=== PATIENT | male | born 1965 | race Caucasian/White ===

== ENCOUNTER 2020-05-11 07:31 | Outpatient (REF) | payer OTHER, SELFPAY | END 2020-05-11 07:32 | disposition home or self-care (01) | LOC: HO.LAB 07:31 | PROVIDERS: Visit Provider Internal Medicine | DX: Z20.822 Contact with and (suspected) exposure to COVID-19 (principal) | CPT/HCPCS: 36415; C9803; U0003; U0005 ==

== ENCOUNTER 2021-09-01 06:04 | Outpatient (REF) | payer OTHER, SELFPAY ==
[2021-09-01 06:22] LABS: MANUAL DIFF FLAG NO
[2021-09-01 07:18] LABS: Basophils Percent Auto 0.7 % (0-2); Eosinophils Absolute Auto 0.1 X10*3/uL (0.0-0.4); Eosinophils Percent Auto 2.4 % (0-4); Hematocrit 43.6 % (42.0-52.0); Hemoglobin 15.4 g/dl (14.0-18.0); Imm Gran Abs Auto 0.01 X10*3/uL (0.00-0.03); Imm Gran Pct Auto 0.3 % (0.0-0.4); Lymphocytes Percent Auto 34.1 % (20-40); Mean Corpuscular HGB Conc 35.3 g/dl (31.0-36.0); Mean Corpuscular Hemoglobin 31.6 pg (27.0-33.0); Mean Corpuscular Volume 89.5 fL (80.0-98.0); Mean Platelet Volume 9.6 fL (9.4-12.4); Monocytes Absolute Auto 0.6 X10*3/uL (0.1-1.2); Monocytes Percent Auto 19.8 % (2-11); Neutrophils Absolute Auto 1.3 x10*3/uL (2.0-8.3); Neutrophils Percent Auto 42.7 % (45-73); Platelet Count 162 X10*3/uL (160-400); Red Blood Count 4.87 X10*6/uL (4.60-5.80); Red Cell Distribution Width 12.3 % (11.0-16.0); White Blood Count 2.9 X10*3/uL (4.8-10.8)
[2021-09-01 07:42] LABS: Alanine Aminotransferase 27 U/L (0-40); Albumin Level 4.1 g/dL (3.5-5.0); Alkaline Phosphatase 81 U/L (39-117); Anion Gap 20 (12-20); Aspartate Amino Transferase 16 U/L (5-37); Bilirubin Total 0.7 mg/dL (0.0-1.0); Blood Urea Nitrogen 11 mg/dL (9-16); Calcium 9.2 mg/dL (8.4-10.2); Carbon Dioxide 22 mmol/L (22-29); Chloride 100 mmol/L (96-108); Cholesterol 124 mg/dL; Estimated Glomerular Filt Rate > 60; Glucose Fasting 299 mg/dL (60-99); HDL Cholesterol 41 mg/dL; LDL Cholesterol Calculated 62 mg/dl; Potassium 5.3 mmol/L (3.3-5.1); Sodium 137 mmol/L (135-145); Total Protein 7.3 g/dL (6.5-8.0); Triglycerides 108 mg/dL
[2021-09-01 07:58] LABS: Hemoglobin A1c % > 14.0 %
[2021-09-01 08:08] LABS: Prostate Specific Antigen 0.62 ng/mL (<0.05-4.0)
[2021-09-01 10:22] LABS: Creatinine Urine 59.56 mg/dL; Microalbumin Urine < 5.0 mg/L
== END 2021-09-01 06:05 | disposition home or self-care (01) ==
LOC: HO.LAB 06:04
PROVIDERS: PCP Internal Medicine; Visit Provider Internal Medicine
DX: Z12.5 Encounter for screening for malignant neoplasm of prostate (principal); E11.9 Type 2 diabetes mellitus without complications
CPT/HCPCS: 36415; 80053; 80061; 82043; 83036; 84153; 85025

== ENCOUNTER 2021-12-18 07:43 | Outpatient (REF) | payer OTHER, SELFPAY ==
[2021-12-18 08:04] LABS: MANUAL DIFF FLAG NO
[2021-12-18 08:15] LABS: Basophils Percent Auto 0.9 % (0-2); Eosinophils Absolute Auto 0.1 X10*3/uL (0.0-0.4); Eosinophils Percent Auto 1.9 % (0-4); Hematocrit 43.8 % (42.0-52.0); Imm Gran Abs Auto 0.01 X10*3/uL (0.00-0.03); Imm Gran Pct Auto 0.2 % (0.0-0.4); Lymphocytes Absolute Auto 1.8 X10*3/uL (1.2-4.9); Lymphocytes Percent Auto 40.6 % (20-40); Mean Corpuscular HGB Conc 36.5 g/dl (31.0-36.0); Mean Corpuscular Hemoglobin 30.5 pg (27.0-33.0); Mean Corpuscular Volume 83.6 fL (80.0-98.0); Mean Platelet Volume 8.9 fL (9.4-12.4); Monocytes Absolute Auto 0.4 X10*3/uL (0.1-1.2); Neutrophils Percent Auto 47.4 % (45-73); Platelet Count 234 X10*3/uL (160-400); Red Blood Count 5.24 X10*6/uL (4.60-5.80); Red Cell Distribution Width 12.2 % (11.0-16.0); White Blood Count 4.3 X10*3/uL (4.8-10.8)
[2021-12-18 08:50] LABS: Alanine Aminotransferase 15 U/L (0-40); Albumin Level 4.2 g/dL (3.5-5.0); Alkaline Phosphatase 52 U/L (39-117); Anion Gap 15 (12-20); Aspartate Amino Transferase 11 U/L (5-37); Bilirubin Total 0.8 mg/dL (0.0-1.0); Blood Urea Nitrogen 10 mg/dL (9-16); C Reactive Protein 0.05 mg/dL (< or = 0.50); Calcium 9.4 mg/dL (8.4-10.2); Carbon Dioxide 26 mmol/L (22-29); Chloride 98 mmol/L (96-108); Estimated Glomerular Filt Rate > 60; Glucose Random 294 mg/dL (60-115); Potassium 4.6 mmol/L (3.3-5.1); Sodium 134 mmol/L (135-145); Total Protein 7.1 g/dL (6.5-8.0)
[2021-12-18 09:12] LABS: Free T4 (Free Thyroxine) 1.46 ng/dL (0.71-1.85); Thyroid Stimulating Hormone 2.15 uIU/mL (0.32-4.0)
[2021-12-18 09:20] LABS: Estimated Average Glucose 272 mg/dL; Hemoglobin A1c % 11.1 %
[2021-12-18 16:27] LABS: Vitamin B12 1898 pg/mL (200-900)
== END 2021-12-18 07:44 | disposition home or self-care (01) ==
LOC: HO.LAB 07:43
PROVIDERS: PCP Internal Medicine; Visit Provider Internal Medicine
DX: E11.9 Type 2 diabetes mellitus without complications (principal); R63.4 Abnormal weight loss; G62.9 Polyneuropathy, unspecified
CPT/HCPCS: 36415; 80053; 82550; 82607; 83036; 84439; 84443; 85025; 86140

== ENCOUNTER 2022-03-18 12:11 | Outpatient (REF) | payer OTHER, SELFPAY ==
[2022-03-18 13:49] LABS: MANUAL DIFF FLAG NO
[2022-03-18 13:54] LABS: Appearance Urine Clear; Color Urine Yellow; Glucose Urine UA 500 mg/dL (Negative); Leukocyte Esterase Urine Negative (Negative); Nitrite Urine Negative (Negative); Urine Blood Negative (Negative); Urine Ketones Negative (Negative); Urine Protein Negative (Neg-Trace)
[2022-03-18 13:54] LABS: Basophils Absolute Auto 0.1 X10*3/uL (0.0-0.2); Basophils Percent Auto 0.7 % (0-2); Eosinophils Absolute Auto 0.1 X10*3/uL (0.0-0.4); Eosinophils Percent Auto 1.6 % (0-4); Hematocrit 43.2 % (42.0-52.0); Hemoglobin 15.5 g/dl (14.0-18.0); Imm Gran Abs Auto 0.02 X10*3/uL (0.00-0.03); Imm Gran Pct Auto 0.3 % (0.0-0.4); Lymphocytes Absolute Auto 2.1 X10*3/uL (1.2-4.9); Lymphocytes Percent Auto 29.6 % (20-40); Mean Corpuscular HGB Conc 35.9 g/dl (31.0-36.0); Mean Corpuscular Hemoglobin 30.9 pg (27.0-33.0); Mean Corpuscular Volume 86.2 fL (80.0-98.0); Mean Platelet Volume 9.2 fL (9.4-12.4); Monocytes Absolute Auto 0.5 X10*3/uL (0.1-1.2); Monocytes Percent Auto 7.1 % (2-11); Neutrophils Absolute Auto 4.2 x10*3/uL (2.0-8.3); Neutrophils Percent Auto 60.7 % (45-73); Platelet Count 262 X10*3/uL (160-400); Red Blood Count 5.01 X10*6/uL (4.60-5.80); Red Cell Distribution Width 12.4 % (11.0-16.0)
[2022-03-18 14:35] LABS: Alanine Aminotransferase 10 U/L (0-40); Albumin Level 4.2 g/dL (3.5-5.0); Alkaline Phosphatase 57 U/L (39-117); Amylase 34 U/L (28-100); Anion Gap 12 (12-20); Aspartate Amino Transferase 10 U/L (5-37); Bilirubin Total 0.4 mg/dL (0.0-1.0); Blood Urea Nitrogen 10 mg/dL (9-16); C Reactive Protein < 0.04 mg/dL (< or = 0.50); Calcium 9.5 mg/dL (8.4-10.2); Carbon Dioxide 28 mmol/L (22-29); Chloride 98 mmol/L (96-108); Estimated Glomerular Filt Rate > 60; Glucose Random 210 mg/dL (60-115); Lipase 28 U/L (8-78); Sodium 133 mmol/L (135-145); Total Protein 6.8 g/dL (6.5-8.0)
[2022-03-18 14:38] LABS: Creatinine Urine 50.63 mg/dL; Microalbumin Urine < 5.0 mg/L
[2022-03-18 15:36] LABS: Estimated Average Glucose 229 mg/dL; Hemoglobin A1c % 9.6 %
== END 2022-03-18 12:12 | disposition home or self-care (01) ==
LOC: HO.10HDL 12:11
PROVIDERS: Visit Provider Internal Medicine
DX: E11.9 Type 2 diabetes mellitus without complications (principal); R10.9 Unspecified abdominal pain
CPT/HCPCS: 36415; 80053; 81003; 82043; 82150; 82550; 83036; 83690; 85025; 86140

== ENCOUNTER 2022-08-26 07:27 | Outpatient (REF) | payer OTHER, SELFPAY ==
[2022-08-26 11:23] LABS: MANUAL DIFF FLAG NO
[2022-08-26 11:55] LABS: Basophils Percent Auto 0.6 % (0-2); Eosinophils Absolute Auto 0.1 X10*3/uL (0.0-0.4); Eosinophils Percent Auto 2.1 % (0-4); Hematocrit 42.9 % (42.0-52.0); Hemoglobin 14.7 g/dl (14.0-18.0); Imm Gran Abs Auto 0.01 X10*3/uL (0.00-0.03); Imm Gran Pct Auto 0.2 % (0.0-0.4); Lymphocytes Absolute Auto 1.8 X10*3/uL (1.2-4.9); Lymphocytes Percent Auto 35.3 % (20-40); Mean Corpuscular HGB Conc 34.3 g/dl (31.0-36.0); Mean Corpuscular Hemoglobin 30.2 pg (27.0-33.0); Mean Corpuscular Volume 88.3 fL (80.0-98.0); Mean Platelet Volume 9.7 fL (9.4-12.4); Monocytes Absolute Auto 0.5 X10*3/uL (0.1-1.2); Monocytes Percent Auto 10.5 % (2-11); Neutrophils Absolute Auto 2.7 x10*3/uL (2.0-8.3); Neutrophils Percent Auto 51.3 % (45-73); Platelet Count 187 X10*3/uL (160-400); Red Blood Count 4.86 X10*6/uL (4.60-5.80); Red Cell Distribution Width 12.9 % (11.0-16.0); White Blood Count 5.2 X10*3/uL (4.8-10.8)
[2022-08-26 12:20] LABS: Alanine Aminotransferase 12 U/L (0-40); Albumin Level 3.9 g/dL (3.5-5.0); Alkaline Phosphatase 62 U/L (39-117); Anion Gap 9 (12-20); Aspartate Amino Transferase 11 U/L (5-37); Bilirubin Total 0.6 mg/dL (0.0-1.0); Blood Urea Nitrogen 13 mg/dL (9-16); Calcium 9.2 mg/dL (8.4-10.2); Carbon Dioxide 29 mmol/L (22-29); Chloride 106 mmol/L (96-108); Cholesterol 129 mg/dL; Estimated Glomerular Filt Rate > 60; Glucose Fasting 151 mg/dL (60-99); HDL Cholesterol 49 mg/dL; LDL Cholesterol Calculated 64 mg/dl; Potassium 5.3 mmol/L (3.3-5.1); Sodium 139 mmol/L (135-145); Total Protein 6.4 g/dL (6.5-8.0); Triglycerides 82 mg/dL
[2022-08-26 12:29] LABS: Estimated Average Glucose 214 mg/dL; Hemoglobin A1c % 9.1 %
[2022-08-26 12:33] LABS: Creatinine Urine 107.73 mg/dL; Microalbum/Creatinine Ratio Ur 9.2 ug/mg cr
[2022-08-26 12:55] LABS: Folate 9.8 ng/mL (> or = 4.0); PSA,Total (Free>4and<10) 0.93 ng/mL (0.00-4.00); Vitamin B12 1798 pg/mL (200-900)
== END 2022-08-26 07:28 | disposition home or self-care (01) ==
LOC: HO.HMGCLDS 07:27
PROVIDERS: PCP Internal Medicine; Visit Provider Internal Medicine
DX: Z12.5 Encounter for screening for malignant neoplasm of prostate (principal); E11.9 Type 2 diabetes mellitus without complications; F10.11 Alcohol abuse, in remission; M79.2 Neuralgia and neuritis, unspecified; Z98.890 Other specified postprocedural states; Z79.4 Long term (current) use of insulin
CPT/HCPCS: 36415; 80053; 80061; 82043; 82607; 82746; 83036; 84153; 85025

== ENCOUNTER 2023-01-18 07:16 | Outpatient (REF) | payer OTHER, SELFPAY ==
[2023-01-18 12:01] LABS: Estimated Average Glucose 203 mg/dL; Hemoglobin A1c % 8.7 % (<6.0)
[2023-01-25 23:53] LABS: Insulin Auto Antibody 1.3 U/mL (<0.4)
== END 2023-01-18 07:17 | disposition home or self-care (01) ==
LOC: HO.HMGCLDS 07:16
PROVIDERS: PCP Internal Medicine; Visit Provider Internal Medicine
DX: E11.9 Type 2 diabetes mellitus without complications (principal); R74.8 Abnormal levels of other serum enzymes
CPT/HCPCS: 36415; 80053; 82607; 82746; 83036; 86337

== ENCOUNTER 2023-06-23 12:17 | Outpatient (AMB) | payer OTHER, SELFPAY ==
[2023-06-23 13:04] VITALS: BP 126/80; PULSE 93; O2SAT 98; BMI 25.4
--- NOTE | 2023-06-23 13:04 | MHC.PC.OV ---
Vital Signs 06/23/23 13:04 Height 6 ft 2 in Weight 198 lb BMI 25.4 BP 126/80 Blood Pressure Location Lt brachial Position Sitting Pulse 93 Pulse Source Pulse Oximeter Pulse Oximetry (%) 98 Oxygen Delivery Method Room Air Intake Visit Reasons: DM F/U Intake Note: Pt is here today for a follow up visit on DM. Allergies metformin Adverse Reaction (Intermediate, Verified 06/23/23 13:04) Stomach Upset Medication List - Last Reconciled 06/23/23 by Fernanda Villarreal MD blood sugar diagnostic (FreeStyle Lite Strips) As directed blood-glucose meter (FreeStyle Lite Meter kit) As directed Farxiga (dapagliflozin propanediol) 5 mg PO DAILY NS flash glucose sensor (FreeStyle Magdalena 14 Day Sensor kit) TID gabapentin 300 mg PO BID insulin glargine (Lantus Solostar U-100 Insulin) 28 units subcut DAILY insulin lispro (Humalog KwikPen (U-100) Insulin) 6 - 12 units subcut lancets (FreeStyle Lancets) As directed pantoprazole 20 mg PO DAILY semaglutide (Ozempic) 0.25 mg (0.368 mL) subcut QWEEK Tobacco use date assessed: 06/23/23 Dental Screening Dental Screen Date: 06/23/23 Did you have a dental visit in the last 12 months?: Yes Did you have a dental problem in the last 6 months where you did not have access to dental care?: No Was dental information given to patient?: Patient has dentist HPI DM F/U HPI Details Patient presents for the follow-up of type 2 diabetes. He started taking Ozempic last month and is up to 0.5 mg weekly and tolerating well. He has been taking insulins, Lantus and Humalog. Patient reports improved fasting blood glucose down to 160s since started Ozempic. 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 1. Little interest or pleasure in doing things: not at all 2. Feeling down, depressed, or hopeless: not at all 3. Trouble falling or staying asleep, or sleeping too much: not at all 4. Feeling tired or having little energy: not at all 5. Poor appetite or overeating: not at all 6. Feeling bad about yourself - or that you are a failure or have let yourself or your family down: not at all 7. Trouble concentrating on things, such as reading the newspaper or watching television: not at all 8. Moving or speaking so slowly that other people could have noticed. Or the opposite - being so fidgety or restless that you have been moving around a lot more than usual: not at all 9. Thoughts that you would be better off or of hurting yourself in some way: not at all Total score: 0 Depression Screening Interpretation: Negative Depression Screening Done: Yes Source: Developed by Drs. Kong Paniagua, Leatha Haji, Osman Campbell and colleagues, with an educational dia from [employer]. Thrive Questionnaire Date Thrive assessed: 06/23/23 I am a: Patient What is your living situation today?: I have a steady place to live Within the past 12 months, did the food you bought not last and you didn't have the money to get more?: Never true Within the past 12 months, did you worry whether your food would run out before you got money to buy more?: Never true Do you have trouble paying for medicines?: No Do you have trouble getting transportation to medical appointments?: No Do you have trouble paying your heating and electricity bill?: No Do you have trouble taking care of your child, family member or friend?: No Do you have trouble with day-to-day activities such as bathing, preparing meals, shopping, managing finances, etc.?: No Are you currently unemployed and looking for a job?: No Are you interested in more education?: No Please select the resources that you would like help with: None THRIVE Score: 0 AUDIT C Alcohol Use Questionnaire (AUDIT-C) 1. How often do you have a drink containing alcohol?: Never 3. How often do you have six or more drinks on one occasion?: Never Total Score: 0 BRISEIDA-7 AMB Questionnaire BRISEIDA-7 Date BRISEIDA - 7 assessed: 06/23/23 Feeling nervous, anxious, or on edge: 0 = Not at all Not being able to stop or control worryin = Not at all Worrying too much about different things: 0 = Not at all Trouble relaxin = Not at all Being so restless that it is hard to sit still: 0 = Not at all Becoming easily annoyed or irritable: 0 = Not at all Feeling afraid as if something awful might happen: 0 = Not at all Total BRISEIDA-7 score (0-4 normal; 5-9 mild; 10-14 moderate; 15-21 severe): 0 Source: Developed by Drs. Kong Paniagua, Leatha Haji, Osman Campbell and colleagues, with an educational dia from [employer]. Review of Systems Const All systems reviewed & are unremarkable except as noted in HPI and below Reports no additional complaints Eyes Reports no additional complaints ENT Reports no additional complaints Card Reports no additional complaints Resp Reports no additional complaints GI Reports no additional complaints Reports no additional complaints Physical exam (Primary Care) Vital Signs: Last Vital Signs Pulse 93 06/23/23 13:04 BP 126/80 06/23/23 13:04 Pulse Ox 98 06/23/23 13:04 Oxygen Delivery Method Room Air 06/23/23 13:04 BMI result Body Mass Index 25.4 Tobacco/Smoking Status: Tobacco use Status Tobacco use date assessed 06/23/23 06/23/23 13:06 Patient Tobacco Use Status Former Tobacco user 06/23/23 13:06 e-Cigarette/Vaping Use Never Used 06/23/23 13:05 PHQ-9: PHQ-9 Score PHQ-9: Total score 0 06/23/23 13:13 Depression Screening Interpretation: Negative Thrive Assessment: Date of Thrive Assessment Date Thrive assessed 06/23/23 06/23/23 13:13 Const General: no acute distress HENMT Head: Yes normal to inspection Ears: hearing grossly normal bilaterally Face and sinus: Yes normal facial exam Eyes General: appearance normal, both eyes and all related structures Resp Effort & Inspection: normal respiratory effort Auscultation: clear to auscultation bilaterally Cardio Rhythm: regular rhythm Heart sounds: S1 normal heart sound present and S2 normal heart sound present GI Inspection: Yes normal to inspection Palpation (GI): Soft to palpation Percussion: Yes normal to percussion Auscultation: normal bowel sounds Assessment and Plan Assessment & Plan (1) DM type 2 (diabetes mellitus, type 2): Comment: x 6 years, f/u with Marcos Bonds Code(s): E11.9 - Type 2 diabetes mellitus without complications Plan: ADA diet increase physical activity discussed with the patient. 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
== END 2023-06-23 13:53 | disposition home or self-care (01) ==
PROVIDERS: PCP Internal Medicine; Visit Provider Internal Medicine
DX: E11.9 Type 2 diabetes mellitus without complications (principal); Z79.4 Long term (current) use of insulin; E78.5 Hyperlipidemia, unspecified
CPT/HCPCS: 99213

== ENCOUNTER 2023-08-23 07:35 | Outpatient (REF) | payer OTHER, SELFPAY ==
[2023-08-23 10:22] LABS: MANUAL DIFF FLAG NO
[2023-08-23 10:29] LABS: Basophils Percent Auto 0.7 % (0-2); Eosinophils Absolute Auto 0.1 X10*3/uL (0.0-0.4); Eosinophils Percent Auto 2.5 % (0-4); Hematocrit 44.1 % (42.0-52.0); Hemoglobin 15.3 g/dl (14.0-18.0); Imm Gran Abs Auto 0.01 X10*3/uL (0.00-0.03); Imm Gran Pct Auto 0.2 % (0.0-0.4); Lymphocytes Absolute Auto 1.3 X10*3/uL (1.2-4.9); Lymphocytes Percent Auto 28.7 % (20-40); Mean Corpuscular HGB Conc 34.7 g/dl (31.0-36.0); Mean Corpuscular Hemoglobin 31.4 pg (27.0-33.0); Mean Corpuscular Volume 90.4 fL (80.0-98.0); Mean Platelet Volume 10.2 fL (9.4-12.4); Monocytes Absolute Auto 0.4 X10*3/uL (0.1-1.2); Monocytes Percent Auto 8.6 % (2-11); Neutrophils Absolute Auto 2.6 x10*3/uL (2.0-8.3); Neutrophils Percent Auto 59.3 % (45-73); Platelet Count 172 X10*3/uL (160-400); Red Blood Count 4.88 X10*6/uL (4.60-5.80); Red Cell Distribution Width 13.1 % (11.0-16.0); White Blood Count 4.4 X10*3/uL (4.8-10.8)
[2023-08-23 10:38] LABS: Estimated Average Glucose 183 mg/dL
[2023-08-23 10:52] LABS: Alanine Aminotransferase 19 U/L (0-40); Albumin Level 3.8 g/dL (3.5-5.0); Alkaline Phosphatase 54 U/L (39-117); Anion Gap 12 (12-20); Aspartate Amino Transferase 17 U/L (5-37); Bilirubin Total 0.5 mg/dL (0.0-1.0); Blood Urea Nitrogen 15 mg/dL (9-16); Calcium 8.6 mg/dL (8.4-10.2); Carbon Dioxide 23 mmol/L (22-29); Chloride 107 mmol/L (96-108); Cholesterol 110 mg/dL (<200); Estimated Glomerular Filt Rate > 60; Glucose Fasting 215 mg/dL (60-99); HDL Cholesterol 39 mg/dL (>40); LDL Cholesterol Calculated 59 mg/dL (<100); Potassium 4.4 mmol/L (3.3-5.1); Sodium 138 mmol/L (135-145); Total Protein 6.7 g/dL (6.5-8.0); Triglycerides 61 mg/dL (<150)
[2023-08-23 11:24] LABS: Creatinine Urine 163.98 mg/dL; Microalbum/Creatinine Ratio Ur 4.2 ug/mg cr (<30)
== END 2023-08-23 07:36 | disposition home or self-care (01) ==
LOC: HO.HMGCLDS 07:35
PROVIDERS: PCP Internal Medicine; Visit Provider Internal Medicine
DX: E11.9 Type 2 diabetes mellitus without complications (principal); Z79.4 Long term (current) use of insulin; E78.5 Hyperlipidemia, unspecified
CPT/HCPCS: 36415; 80053; 80061; 82043; 82570; 83036; 85025

== ENCOUNTER 2023-08-25 10:37 | Outpatient (AMB) | payer OTHER, SELFPAY ==
[2023-08-25 10:41] VITALS: BP 120/80; PULSE 78; O2SAT 97; BMI 25.4
--- NOTE | 2023-08-25 10:41 | MHC.PC.OV ---
Vital Signs 08/25/23 10:41 Height 6 ft 2 in Weight 198 lb BMI 25.4 BP 120/80 Blood Pressure Location Lt brachial Position Sitting Pulse 78 Pulse Source Pulse Oximeter Pulse Oximetry (%) 97 Oxygen Delivery Method Room Air Intake Visit Reasons: DM 1M F/U Intake Note: Pt is here today for 1 month follow up visit on DM. Allergies metformin Adverse Reaction (Intermediate, Verified 08/25/23 10:43) Stomach Upset Medication List - Last Reconciled 08/25/23 by Fernanda Villarreal MD blood sugar diagnostic (FreeStyle Lite Strips) As directed blood-glucose meter (FreeStyle Lite Meter kit) As directed dapagliflozin propanediol (Farxiga) 5 mg PO DAILY flash glucose sensor (FreeStyle Magdalena 14 Day Sensor kit) TID gabapentin 300 mg PO BID insulin glargine (Lantus Solostar U-100 Insulin) 28 units subcut DAILY insulin lispro (Humalog KwikPen (U-100) Insulin) 6 - 12 units subcut lancets (FreeStyle Lancets) As directed pantoprazole 20 mg PO DAILY Tobacco use date assessed: 06/23/23 Dental Screening Dental Screen Date: 06/23/23 HPI DM 1M F/U HPI Details Patient presents for the follow-up of type 2 diabetes. He could not tolerate Ozempic but has been taking Farxiga and insulin. 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 Kong Paniagua, Leatha Haji, Osman Campbell and colleagues, with an educational dia from [employer]. Review of Systems Const All systems reviewed & are unremarkable except as noted in HPI and below ENT Reports no additional complaints Card Reports no additional complaints Resp Reports no additional complaints GI Reports no additional complaints Reports no additional complaints Physical exam (Primary Care) Vital Signs: Last Vital Signs Pulse 78 08/25/23 10:41 BP 120/80 08/25/23 10:41 Pulse Ox 97 08/25/23 10:41 Oxygen Delivery Method Room Air 08/25/23 10:41 BMI result Body Mass Index 25.4 Tobacco/Smoking Status: Tobacco use Status Tobacco use date assessed 06/23/23 08/25/23 10:42 Patient Tobacco Use Status Former Tobacco user 08/25/23 10:42 e-Cigarette/Vaping Use Never Used 08/25/23 10:42 Thrive Assessment: Date of Thrive Assessment Date Thrive assessed 06/23/23 08/25/23 10:42 Const General: no acute distress HENMT Mouth: Normal oral and palatal mucosa present Neck Neck: Yes supple Resp Effort & Inspection: normal respiratory effort Auscultation: clear to auscultation bilaterally Cardio Rhythm: regular rhythm Heart sounds: S1 normal heart sound present and S2 normal heart sound present Assessment and Plan Assessment & Plan (1) DM type 2 (diabetes mellitus, type 2): Comment: x 6 years, f/u with Marcos Bonds Code(s): E11.9 - Type 2 diabetes mellitus without complications Plan: ADA diet regular physical activity eating small frequent meals discussed with the patient. He was advised to increase Lantus to 28 units and take 6 units of Humalog before meals for the glucose between 100 and 150 and 12 units for above 150,m continue [facility] follow-up in 6 weeks Medications: Discontinued gabapentin Discontinued Reason: Doctor's Order 300 mg PO BID 60 caps 4RF Coding Level of Care Code Est Pt Level 3 (44103) Diagnoses DM type 2 (diabetes mellitus, type 2) E11.9
== END 2023-08-25 11:18 | disposition home or self-care (01) ==
PROVIDERS: PCP Internal Medicine; Visit Provider Internal Medicine
DX: E11.9 Type 2 diabetes mellitus without complications (principal)
CPT/HCPCS: 99213

== ENCOUNTER 2024-05-02 07:13 | Outpatient (REF) | payer OTHER, SELFPAY ==
[2024-05-02 10:06] LABS: MANUAL DIFF FLAG NO
[2024-05-02 10:22] LABS: Eosinophils Absolute Auto 0.1 X10*3/uL (0.0-0.4); Eosinophils Percent Auto 2.4 % (0-4); Hematocrit 45.5 % (42.0-52.0); Hemoglobin 15.8 g/dl (14.0-18.0); Imm Gran Abs Auto 0.03 X10*3/uL (0.00-0.03); Imm Gran Pct Auto 0.7 % (0.0-0.4); Lymphocytes Absolute Auto 1.4 X10*3/uL (1.2-4.9); Lymphocytes Percent Auto 33.6 % (20-40); Mean Corpuscular HGB Conc 34.7 g/dl (31.0-36.0); Mean Corpuscular Hemoglobin 32.1 pg (27.0-33.0); Mean Corpuscular Volume 92.5 fL (80.0-98.0); Mean Platelet Volume 9.9 fL (9.4-12.4); Monocytes Absolute Auto 0.5 X10*3/uL (0.1-1.2); Monocytes Percent Auto 10.7 % (2-11); Neutrophils Absolute Auto 2.2 x10*3/uL (2.0-8.3); Neutrophils Percent Auto 51.6 % (45-73); Platelet Count 159 X10*3/uL (160-400); Red Blood Count 4.92 X10*6/uL (4.60-5.80); Red Cell Distribution Width 13.3 % (11.0-16.0); White Blood Count 4.2 X10*3/uL (4.8-10.8)
[2024-05-02 10:34] LABS: Estimated Average Glucose 163 mg/dL; Hemoglobin A1C 229.6893 umol/L; Hemoglobin A1c % 7.3 % (<6.0); Total Hemoglobin (HGBA1C) 4088.7816 umol/L
[2024-05-02 10:47] LABS: Alanine Aminotransferase 20 U/L (0-40); Albumin Level 3.9 g/dL (3.5-5.0); Alkaline Phosphatase 54 U/L (39-117); Anion Gap 8 (12-20); Aspartate Amino Transferase 28 U/L (5-37); Bilirubin Total 0.5 mg/dL (0.0-1.0); Blood Urea Nitrogen 13 mg/dL (9-16); Calcium 8.8 mg/dL (8.4-10.2); Carbon Dioxide 29 mmol/L (22-29); Chloride 108 mmol/L (96-108); Cholesterol 130 mg/dL (<200); Estimated Glomerular Filt Rate > 60; Glucose Fasting 130 mg/dL (60-99); HDL Cholesterol 52 mg/dL (>40); LDL Cholesterol Calculated 59 mg/dL (<100); Potassium 4.6 mmol/L (3.3-5.1); Sodium 140 mmol/L (135-145); Total Protein 7.1 g/dL (6.5-8.0); Triglycerides 98 mg/dL (<150)
[2024-05-02 10:58] LABS: Creatinine Urine 219.09 mg/dL; Microalbum/Creatinine Ratio Ur 3.6 ug/mg cr (<30)
== END 2024-05-02 07:14 | disposition home or self-care (01) ==
LOC: HO.HMGCLDS 07:13
PROVIDERS: PCP Internal Medicine; Visit Provider Internal Medicine
DX: E11.9 Type 2 diabetes mellitus without complications (principal); Z79.4 Long term (current) use of insulin; E78.5 Hyperlipidemia, unspecified
CPT/HCPCS: 36415; 80053; 80061; 82043; 82570; 83036; 85025

== ENCOUNTER 2024-05-10 11:04 | Outpatient (AMB) | payer OTHER, SELFPAY ==
[2024-05-10 11:22] VITALS: BP 120/78; PULSE 77; RESP 18; TEMP 37.2; O2SAT 97; BMI 26.3
--- NOTE | 2024-05-10 11:22 | MHC.PC.OV ---
Vital Signs 05/10/24 11:22 Height 6 ft 2 in Weight 205 lb BMI 26.3 BP 120/78 Blood Pressure Location Lt brachial Position Sitting Respiration 18 Pulse 77 Pulse Source Pulse Oximeter Temp 98.9 F Temp Source Oral Pulse Oximetry (%) 97 Oxygen Delivery Method Room Air Intake Visit Reasons: Followup diabetes Intake Note: Pt is here today for a follow up visit on DM. Allergies metformin Adverse Reaction (Intermediate, Verified 05/10/24 11:24) Stomach Upset Medication List - Last Reconciled 05/10/24 by Fernanda Villarreal MD blood sugar diagnostic (FreeStyle Lite Strips) As directed blood-glucose meter (FreeStyle Lite Meter kit) As directed Farxiga (dapagliflozin propanediol) 10 mg PO DAILY NS FreeStyle Magdalena 3 Sensor (blood-glucose sensor) As directed NS insulin glargine (Lantus Solostar U-100 Insulin) 28 units (0.28 mL) subcut DAILY insulin lispro (Humalog KwikPen (U-100) Insulin) 6 - 12 units (0.06 - 0.12 mL) subcut TID MDD 36 units lancets (FreeStyle Lancets) As directed Tobacco use date assessed: 05/10/24 Dental Screening Dental Screen Date: 05/10/24 Did you have a dental visit in the last 12 months?: Yes Did you have a dental problem in the last 6 months where you did not have access to dental care?: No Was dental information given to patient?: Patient has dentist HPI Followup diabetes HPI Details Patient presents for the follow-up of insulin-dependent diabetes, he reports improved fasting blood glucose between 80 and 120. 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 1. Little interest or pleasure in doing things: not at all 2. Feeling down, depressed, or hopeless: not at all 3. Trouble falling or staying asleep, or sleeping too much: not at all 4. Feeling tired or having little energy: not at all 5. Poor appetite or overeating: not at all 6. Feeling bad about yourself - or that you are a failure or have let yourself or your family down: not at all 7. Trouble concentrating on things, such as reading the newspaper or watching television: not at all 8. Moving or speaking so slowly that other people could have noticed. Or the opposite - being so fidgety or restless that you have been moving around a lot more than usual: not at all 9. Thoughts that you would be better off or of hurting yourself in some way: not at all Total score: 0 Depression Screening Interpretation: Negative Depression Screening Done: Yes 95727 - PHQ-9 Billing: Yes Source: Developed by Drs. Kong Paniagua, Leatha Haji, Osman Campbell and colleagues, with an educational dia from [email or web address]. Thrive Questionnaire Date Thrive assessed: 05/10/24 I am a: Patient What is your living situation today?: I have a steady place to live Within the past 12 months, did the food you bought not last and you didn't have the money to get more?: I choose not to answer this question Within the past 12 months, did you worry whether your food would run out before you got money to buy more?: Sometimes True Do you have trouble paying for medicines?: I choose not to answer this question Do you have trouble getting transportation to medical appointments?: No Do you have trouble paying your heating and electricity bill?: Yes Do you have trouble taking care of your child, family member or friend?: No Do you have trouble with day-to-day activities such as bathing, preparing meals, shopping, managing finances, etc.?: No Are you currently unemployed and looking for a job?: No Are you interested in more education?: Yes Please select the resources that you would like help with: Utilities Currently or been in a relationship where the following occur: No concerns reported THRIVE Score: 2 AUDIT C Alcohol Use Questionnaire (AUDIT-C) 1. How often do you have a drink containing alcohol?: Never 3. How often do you have six or more drinks on one occasion?: Never Total Score: 0 BRISEIDA-7 AMB Questionnaire BRISEIDA-7 Date BRISEIDA - 7 assessed: 05/10/24 Feeling nervous, anxious, or on edge: 0 = Not at all Not being able to stop or control worryin = Not at all Worrying too much about different things: 0 = Not at all Trouble relaxin = Not at all Being so restless that it is hard to sit still: 0 = Not at all Becoming easily annoyed or irritable: 0 = Not at all Feeling afraid as if something awful might happen: 0 = Not at all Total BRISEIDA-7 score (0-4 normal; 5-9 mild; 10-14 moderate; 15-21 severe): 0 Source: Developed by Drs. Kong Paniagua, Leatha Haji, Osman Campbell and colleagues, with an educational dia from [email or web address]. BRISEIDA-7 Assessment Billing BRISEIDA-7 Assessment Tool: BRISEIDA-7 Assessment 45094 Physical exam (Primary Care) Vital Signs: Last Vital Signs Temp 98.9 F 05/10/24 11:22 Pulse 77 05/10/24 11:22 Resp 18 05/10/24 11:22 BP 120/78 05/10/24 11:22 Pulse Ox 97 05/10/24 11:22 Oxygen Delivery Method Room Air 05/10/24 11:22 BMI result Body Mass Index 26.3 Tobacco/Smoking Status: Tobacco use Status Tobacco use date assessed 05/10/24 05/10/24 11:27 Patient Tobacco Use Status Former Tobacco user 05/10/24 11:24 e-Cigarette/Vaping Use Never Used 05/10/24 11:24 PHQ-9: PHQ-9 Score PHQ-9: Total score 0 05/10/24 11:27 Depression Screening Interpretation: Negative Thrive Assessment: Date of Thrive Assessment Date Thrive assessed 05/10/24 05/10/24 11:27 Currently or been in a relationship where the following occur: No concerns reported Const General: no acute distress HENMT Head: Yes normal to inspection Face and sinus: Yes normal facial exam Neck Neck: Yes supple Resp Effort & Inspection: normal respiratory effort Auscultation: clear to auscultation bilaterally Cardio Rhythm: regular rhythm Heart sounds: S1 normal heart sound present and S2 normal heart sound present GI Inspection: Yes normal to inspection Palpation (GI): Soft to palpation Coding Level of Care Code Est Pt Level 4 (23882) Diagnoses Insulin dependent type 2 diabetes mellitus E11.9; Z79.4 Additional Codes BRISEIDA-7 Assessment Billing - BRISEIDA-7 Assessment Tool: BRISEIDA-7 Assessment [id number] ([id number]) PHQ-9 - 95881 - PHQ-9 Billing: Yes ([id number]) Assessment & Plan Assessment & Plan (1) Insulin dependent type 2 diabetes mellitus: Code(s): E11.9 - Type 2 diabetes mellitus without complications; Z79.4 - half-way (current) use of insulin Category: Medical Plan: A1c is down to 7.3, continue current treatment. ADA diet regular exercise increase Farxiga to 10 mg a day. Follow-up in 4 months with a fasting labs before Orders: Orders Comprehensive [place]. 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 Complete Blood Count Auto Diff 4 Months E11.9 - Type 2 diabetes mellitus without complications, Z79.4 - half-way (current) use of insulin Microalbumin, Random (w Creat) 4 Months E11.9 - Type 2 diabetes mellitus without complications, Z79.4 - half-way (current) use of insulin Hemoglobin A1c 4 Months E11.9 - Type 2 diabetes mellitus without complications, Z79.4 - half-way (current) use of insulin Medications: New Farxiga (dapagliflozin propanediol) 10 mg PO DAILY 90 tabs 3RF NS FreeStyle Magdalena 3 Sensor (blood-glucose sensor) As directed 3 ea 4RF NS Discontinued flash glucose sensor (FreeStyle Magdalena 14 Day Sensor kit) Discontinued Reason: Doctor's Order TID 6 ea 3RF E11.9 - Type 2 diabetes mellitus without complications, Z79.4 - half-way (current) use of insulin Farxiga (dapagliflozin propanediol) Discontinued Reason: Doctor's Order 5 mg PO DAILY 90 tabs 0RF NS
== END 2024-05-10 13:01 | disposition home or self-care (01) ==
PROVIDERS: PCP Internal Medicine; Visit Provider Internal Medicine
DX: E11.9 Type 2 diabetes mellitus without complications (principal); Z79.4 Long term (current) use of insulin

== ENCOUNTER → 2024-05-10 11:04 | Outpatient (BNVA) | payer OTHER, SELFPAY | PROVIDERS: PCP Internal Medicine; Visit Provider Internal Medicine | DX: E11.9 Type 2 diabetes mellitus without complications (principal); Z79.4 Long term (current) use of insulin | CPT/HCPCS: 96127 ==

== ENCOUNTER 2024-12-14 07:31 | Outpatient (REF) | payer OTHER, SELFPAY ==
--- OUTSIDE RECORDS SUMMARY | 2024-12-14 07:33 | XMS_ITS | Patient Health Record ---
Author Organization [facility] Address [address] [place] [id number] Care Team Providers Care Manufacturing Maintenance Technician Name Role Phone Anil (RETIRED) Oscar STATON Primary Care Provide r Unavailable Morgan Adhikari Jr Unavailable Reason For Referral No Information Medications Medication SIG (Take, Route, Frequency, Duration) Notes Start Date End Date Status Aspirin 81 81 MG 1 tablet Orally Once a day for 30 day(s) Active glipiZIDE 10 MG TAKE ONE TABLET BY M OUTH TWICE A DAY Oral for 30 Active MiraLax (colon prep) 8.3 ounce ((238) grams mixed with Gatorade or Crystal Light orally begin at 5:00 p.m. the day before the procedure for 1 day 09/05/2019 Active metFORMIN HCl 1000 MG TAKE ONE TABLET BY MOUTH TWICE A DAY Oral for 30 Active Immunizations Vaccine Route Administration Date Status Comme nts Influenza Unknown 09/05/2019 Refused Social History Tobacco Use: Social History Observation Description Date Details (start date - stop date) Former Smoker NA - NA Tobacco Use/Smoking Question Answer Notes Patient is a former smoker When did you stop smoking? 26 years ago How long has it been since you last smoked? > 10 years Alcohol Screen Question Answer Notes Did you have a drink containing alcohol in the p ast year? No Points 0 Interpretation Negative Section Notes: no alcohol for 3 years Problems Problem Type SNOMED Code ICD Code Onset Dates Problem Status W/U Status Risk Notes Problem 395383635 Colon cancer screening (Z12.11) Active confirmed Problem 559367765 Encounter for other preprocedural examination (Z01.818) Active confirmed Problem [id number] Long-term use of aspirin therapy (Z79.82) Active confirmed Plan Of Treatment Future Test Test Name Order Date COLONOSCOPY 09/05/2019 Insurance Providers Payer Name Payer Address Payer Phone Subscriber Number Group Number Insured Name Patient Relationship to Insured Coverage Start Date Coverage End Date [facility] [address] [place] [phone] [id number] FREDERIC CLIFFORD Self - patient is the insured Medical (General) History Medical History History ICD Code type II diabetes 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
--- OUTSIDE RECORDS SUMMARY | 2024-12-14 07:33 | XMS_ITS | Continuity of Care Document ---
Author Organization [facility] [address] [place] [address] Phone [phone] Care Team Providers Care Director Of Strategic Alliances Name Role Phone Oscar Ma M.D. Care Team Information Receiv er [phone] Problems Active Problems Provider Date Type 2 diabetes mellitus Eric Anderson M.D. O nset: 04/21/2022 Neuropathy Eric Anderson M.D. Onset: 03/2023 Essential hypertension Eric Anderson M.D. Ons et: 04/21/2022 Social History Type Date Description Comments Sex Male Sex Unknown Tobacco Use Start: Unknown Never Smoked Cigarettes ETOH Use Denies alcohol use Allergies and adverse reactions Description No Known Drug Allergies Medications Active Medications SIG Qnty Indications Order ing Provider Date Mhzwgwmowf626pm Capsules 1 by mouth hs 90caps Eric Anderson M.D. 05/31/2022 Gtptich298Bisu/ML Solution before meals 30ml Eric Anderson M.D. 04/21/2022 Humalog Itrsbxp649Jyjh/ML Solution Pen-Inject inject 6-12 units subcutaneously before meals 15ml E11.9 Eric Anderson M.D. 04/21/[address] Take 1 Tablet By Mouth Once A Day Oscar Ma M.D. Lantus Gnsldhxt154Mwip/ML Solution Pen-Inject Inject 20 Units Subcutaneously Once A Day Oscar Ma M.D. Freestyle LancetsMisc Use To Test Once A Day Unknown Freestyle Lite TestStrips Use To Test Once A Day Unknown Vital Signs Date Vital Result Comment 05/31/2022 2:59pm BP Systolic 120 mmHg BP Diastolic 78 mmHg Heart Rate 92 /min Height 74 inches 6'2 Weight 174.38 lb BMI (Body Mass Index) 22.4 kg/m2 Results Test Acquired Date Facility Test Result H/L Range N ote Glucose Fingerstick 05/31/2022 Inhouse Glucose Fingerstick 173 Glucose Fingerstick 04/21/2022 Inhouse Glucose Fingerstick 285 Medical Devices Description No Information Available Encounters Type Date Location Provider Dx Diagnosis Office Visit 05/31/2022 3:15p Main Office Eric Anderson M.D. E11.9 Type 2 diabetes mellitus without complications I10 Essential (primary) hypertension G62.9 Polyneuropathy, unsp ecified Assessments Date Code Description Provider 05/31/2022 E11.9 Type 2 diabetes mellitus wit hout complications Eric Anderson M.D. 05/31/2022 I10 Essential hypertension Eric Anderson M.D. 05/31/2022 G62.9 Neuropathy Eric Anderson M.D. Plan of Treatment 04/21/2022 - Eric Anderson M.D.* E11.9 Type 2 diabetes mellitus without complications * I10 Essential hypertension * G62.9 Neuropathy* New Medication:* Humalog Kwikpen 100 Unit/ML Functional Status Description No Information Available Mental Status Description No Information Available Referrals Description No Information Available
[2024-12-14 11:11] LABS: MANUAL DIFF FLAG NO
[2024-12-14 11:27] LABS: Hematocrit 44.4 % (42.0-52.0); Hemoglobin 15.5 g/dl (14.0-18.0); Imm Gran Abs Auto 0.01 X10*3/uL (0.00-0.03); Imm Gran Pct Auto 0.2 % (0.0-0.4); Lymphocytes Absolute Auto 1.2 X10*3/uL (1.2-4.9); Mean Corpuscular HGB Conc 34.9 g/dl (31.0-36.0); Mean Corpuscular Hemoglobin 33.5 pg (27.0-33.0); Mean Corpuscular Volume 96.1 fL (80.0-98.0); NRBC Abs Auto 0.000 X10*3/uL (0.0-0.012); NRBC Pct Auto 0.0 /100WBC (0.0-0.2); Platelet Count 121 X10*3/uL (160-400); Red Blood Count 4.62 X10*6/uL (4.60-5.80); White Blood Count 4.0 X10*3/uL (4.8-10.8)
[2024-12-14 11:32] LABS: Hemoglobin A1C 188.0814 umol/L; Total Hemoglobin (HGBA1C) 4069.2924 umol/L
[2024-12-14 11:38] LABS: Alanine Aminotransferase 33 U/L (0-40); Albumin Level 4.2 g/dL (3.5-5.0); Alkaline Phosphatase 37 U/L (39-117); Anion Gap 14 (12-20); Aspartate Amino Transferase 57 U/L (5-37); Blood Urea Nitrogen 12 mg/dL (9-16); Calcium 8.9 mg/dL (8.4-10.2); Carbon Dioxide 28 mmol/L (22-29); Chloride 100 mmol/L (96-108); Estimated Glomerular Filt Rate > 60; Potassium 4.6 mmol/L (3.3-5.1); Sodium 137 mmol/L (135-145); Total Protein 7.0 g/dL (6.5-8.0)
[2024-12-14 14:12] LABS: Microalbum/Creatinine Ratio Ur 14.3 ug/mg cr (<30)
== END 2024-12-14 07:32 | disposition home or self-care (01) ==
LOC: HO.HMGCLDS 07:31
PROVIDERS: PCP Internal Medicine; Visit Provider Internal Medicine
DX: E11.9 Type 2 diabetes mellitus without complications (principal); Z79.4 Long term (current) use of insulin
CPT/HCPCS: 36415; 80053; 82043; 82570; 83036; 85025

== ENCOUNTER 2024-12-16 09:44 | Outpatient (AMB) | payer OTHER, SELFPAY ==
[2024-12-16 10:17] VITALS: BP 124/78; PULSE 80; RESP 18; TEMP 37.1; O2SAT 98; BMI 24.9
--- NOTE | 2024-12-16 10:17 | MHC.PC.OV ---
Vital Signs 12/16/24 10:17 Height 6 ft 2 in Weight 194 lb BMI 24.9 BP 124/78 Blood Pressure Location Rt brachial Position Sitting Respiration 18 Pulse 80 Pulse Source Pulse Oximeter Temp 98.8 F Temp Source Oral Pulse Oximetry (%) 98 Oxygen Delivery Method Room Air Intake Visit Reasons: Annual PE/Med review Intake Note: Pt is here today for PE. Allergies metformin Adverse Reaction (Intermediate, Verified 12/16/24 10:17) Stomach Upset Medication List - Last Reconciled 12/16/24 by Fernanda Villarreal MD blood sugar diagnostic (FreeStyle Lite Strips) As directed blood-glucose meter (FreeStyle Lite Meter kit) As directed blood-glucose sensor (FreeStyle Magdalena 3 Plus Sensor device) Test blood sugar 4 times a day, change sensor every 15 days Farxiga (dapagliflozin propanediol) 10 mg PO DAILY NS insulin glargine (Lantus Solostar U-100 Insulin) 28 units (0.28 mL) subcut DAILY insulin lispro (Humalog KwikPen (U-100) Insulin) 6 - 12 units (0.06 - 0.12 mL) subcut TID MDD 36 units lancets (FreeStyle Lancets) As directed Tobacco use date assessed: 12/16/24 Dental Screening Dental Screen Date: 05/10/24 HPI Annual PE/Med review HPI Details Patient presents for physical. Insulin-dependent diabetes has been well controlled. Patient reports occasionally low blood glucose reading in early mornings hours. He usually does not have a snack after dinner. 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 Housing: House Patient Tobacco Use Status: Former Tobacco user e-Cigarette/Vaping Use: Never Used service: No Current occupational status: employed Cognitive needs: No Hearing needs: No Vision needs: No Questionnaire Thrive Questionnaire Date Thrive assessed: 05/06/24 I am a: Patient What is your living situation today?: I have a steady place to live Within the past 12 months, did the food you bought not last and you didn't have the money to get more?: I choose not to answer this question Within the past 12 months, did you worry whether your food would run out before you got money to buy more?: Sometimes True Do you have trouble paying for medicines?: I choose not to answer this question Do you have trouble getting transportation to medical appointments?: No Do you have trouble paying your heating and electricity bill?: Yes Do you have trouble taking care of your child, family member or friend?: No Do you have trouble with day-to-day activities such as bathing, preparing meals, shopping, managing finances, etc.?: No Are you currently unemployed and looking for a job?: No Are you interested in more education?: Yes Please select the resources that you would like help with: Utilities Currently or been in a relationship where the following occur: No concerns reported THRIVE Score: 2 BRISEIDA-7 AMB Questionnaire BRISEIDA-7 Date BRISEIDA - 7 assessed: 05/10/24 Source: Developed by Drs. Kong Paniagua, Leatha Haji, Osman Campbell and colleagues, with an educational dia from [facility]. Review of Systems Const All systems reviewed & are unremarkable except as noted in HPI and below Eyes Reports no additional complaints ENT Reports no additional complaints Card Reports no additional complaints Resp Reports no additional complaints GI Reports no additional complaints Reports no additional complaints Physical exam (Primary Care) Vital Signs: Last Vital Signs Temp 98.8 F 12/16/24 10:17 Pulse 80 12/16/24 10:17 Resp 18 12/16/24 10:17 BP 124/78 12/16/24 10:17 Pulse Ox 98 12/16/24 10:17 Oxygen Delivery Method Room Air 12/16/24 10:17 BMI result Body Mass Index 24.9 Tobacco/Smoking Status: Tobacco use Status Tobacco use date assessed 12/16/24 12/16/24 10:19 Patient Tobacco Use Status Former Tobacco user 09/08/25 10:19 e-Cigarette/Vaping Use Never Used 12/16/24 10:19 Thrive Assessment: Date of Thrive Assessment Date Thrive assessed 05/06/24 12/16/24 10:19 Currently or been in a relationship where the following occur: No concerns reported Const General: no acute distress HENMT Head: Yes normal to inspection Face and sinus: Yes normal facial exam Eyes General: appearance normal, both eyes and all related structures Neck Neck: Yes supple Resp Effort & Inspection: normal respiratory effort Auscultation: clear to auscultation bilaterally Cardio Rhythm: regular rhythm Heart sounds: S1 normal heart sound present and S2 normal heart sound present GI Inspection: Yes normal to inspection Palpation (GI): Soft to palpation Percussion: Yes normal to percussion Auscultation: normal bowel sounds Extrem Other: Diabetic foot exam skin is intact monofilament and vibration sensation intact bilaterally Coding Level of Care Code Est Pt Prev Care 40-64y(23504) Diagnoses DM type 2 (diabetes mellitus, type 2) E11.9 Hx of colonoscopy Z98.890 Annual physical exam Z00. Assessment & Plan Assessment & Plan (1) DM type 2 (diabetes mellitus, type 2): Comment: IDDM x 6 years, Code(s): E11.9 - Type 2 diabetes mellitus without complications Category: Medical Plan: A1c is 6.4, ADA diet regular exercise discussed with the patient. He will decrease Lantus to 20 units to avoid morning hypoglycemia. Patient will continue Humalog before meals and Magdalena sensor monitoring. Follow-up in 3 months. Patient will be referred to pin attacher for diabetic foot exam. He is up-to-date with diabetic eye exam. Patient's insurance will not cover Farxiga that he has been taking for renal protection (2) Hx of colonoscopy: Comment: 2020, 2 polyps by Code(s): Z98.890 - Other specified postprocedural states Category: Surgical Plan: Patient is due for repeat colonoscopy next year we will obtain a copy of colonoscopy report (3) Annual physical exam: Code(s): Z00.00 - Encounter for general adult medical examination without abnormal findings Category: Medical Plan: Well-balanced diet regular physical activity discussed with the patient Orders: Orders Hemoglobin A1c 3 Months E11.9 - Type 2 diabetes mellitus without complications Lipid Panel 3 Months E11.9 - Type 2 diabetes mellitus without complications Microalbumin, Random (w Creat) 3 Months E11.9 - Type 2 diabetes mellitus without complications Comprehensive [place]. Panel Fast 3 Months E11.9 - Type 2 diabetes mellitus without complications Complete Blood Count Auto Diff 3 Months E11.9 - Type 2 diabetes mellitus without complications Referrals Podiatry Referral E11.9 - Type 2 diabetes mellitus without complications Medications: Changed From insulin glargine (Lantus Solostar U-100 Insulin) 28 units (0.28 mL) subcut DAILY 15 mL 3RF To insulin glargine (Lantus Solostar U-100 Insulin) 20 units (0.2 mL) subcut DAILY 15 mL 3RF
--- OUTSIDE RECORDS SUMMARY | 2024-12-16 11:15 | XMS_ITS | Continuity of Care Document ---
Author Organization [facility] [address] [place] [address] Phone [phone] Care Team Providers Care Ui Ux Developer Name Role Phone Oscar Ma M.D. Care Team Information Receiv er [phone] Problems Active Problems Provider Date Type 2 [...] SIG Qnty Indications Order ing Provider Date Bnwzvigbva886li Capsules 1 by mouth hs 90caps Eric Anderson M.D. 05/31/2022 Hntpmwx784Pxzl/ML Solution before meals 30ml Eric Anderson M.D. 04/21/2022 Humalog Xarwtui498Yhir/ML Solution Pen-Inject inject 6-12 units subcutaneously before meals 15ml E11.9 Eric Anderson M.D. 04/21/[address] Take 1 Tablet By Mouth Once A Day Oscar Ma M.D. Lantus Ewcxstkm944Uuvr/ML Solution Pen-Inject Inject 20 Units Subcutaneously Once [...] Diagnosis Office Visit 05/31/2022 3:15p Main Office Eirc Anderson M.D. E11.9 Type 2 diabetes mellitus [...]
--- OUTSIDE RECORDS SUMMARY | 2024-12-16 11:15 | XMS_ITS | Patient Health Record ---
Author Organization [facility] Address [address] [place] [address] Care Team Providers Care Yoker Name Role Phone Anil (RETIRED) Oscar STATON [...] Problem Status W/U Status Risk Notes Problem [id number] Colon cancer screening (Z12.11) Active confirmed Problem 516962094 Encounter for other preprocedural examination (Z01.818) Active confirmed Problem 514297910 Long-term use of aspirin therapy (Z79.82) Active confirmed Plan Of Treatment Future Test Test Name Order Date COLONOSCOPY 09/05/2019 Insurance Providers Payer Name Payer Address Payer Phone Subscriber Number Group Number Insured Name Patient Relationship to Insured Coverage Start Date Coverage End Date [facility] [address] [facility] [place] [phone] [id number] FREDERIC CLIFFORD Self - patient is the insured Medical (General) History Medical History History ICD Code type II diabetes 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
== END 2024-12-16 11:36 | disposition home or self-care (01) ==
LOC: HO.HMCC 09:45
PROVIDERS: PCP Internal Medicine; Visit Provider Internal Medicine
DX: E11.9 Type 2 diabetes mellitus without complications (principal); Z98.890 Other specified postprocedural states; Z00.00 Encounter for general adult medical examination without abnormal findings

== ENCOUNTER 2024-12-26 07:54 | Outpatient (AMB) | payer OTHER, SELFPAY ==
--- NOTE | 2024-12-26 07:57 | A.OFFVIS_ITS ---
Vital Signs 3 12/26/24 07:59 Height 6 ft 2 in Weight 200 lb BMI 25.7 Intake Visit Reasons: New Pt- Diabetic foot exam Intake Note: Madi is a 59 year old male who presents today as a new patient for a Diabetic foot exam. Last A1c was done on 12/15/23 by his PCP office and the result was 6.4%. He mentions his glucose now is at 212 after breakfast. Patient reports feeling no tingling or numbness in his feet. He mentions he bilaterally [place] the [place] the [place] and it has healed but he has a small dark spot on the bottom of his right foot. Allergies metformin Adverse Reaction (Intermediate, Verified 12/26/24 07:59) Stomach Upset Medication List - Last Reconciled 12/26/24 by Akua Sanchez DPM blood sugar diagnostic (FreeStyle Lite Strips) As directed blood-glucose meter (FreeStyle Lite Meter kit) As directed blood-glucose sensor (FreeStyle Magdalena 3 Plus Sensor device) Test blood sugar 4 times a day, change sensor every 15 days Farxiga (dapagliflozin propanediol) 10 mg PO DAILY NS insulin glargine (Lantus Solostar U-100 Insulin) 20 units (0.2 mL) subcut DAILY insulin lispro (Humalog KwikPen (U-100) Insulin) 6 - 12 units (0.06 - 0.12 mL) subcut TID MDD 36 units lancets (FreeStyle Lancets) As directed HPI Comments Details: The patient is a 59-year-old male with a PMH as seen below presenting for a routine diabetic foot examination and management. The patient reports no current concerns with his feet, denying pain, numbness, tingling, or burning, except when he burned his right foot on the beach, resulting in 2 hyperkeratotic lesions to the plantar aspect of the foot in the area of the 4th and 5th metatarsal heads. The patient has a history of diabetes mellitus, with a recent blood sugar reading of 212 mg/dL and his most recent A1c is 6.4. He is currently on insulin therapy. The patient uses supportive footwear, specifically Hoka sneakers, and has insoles for his boots used in winter. He denies any other pedal concerns. Denies any current nausea, vomiting, fever, or chills. 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 - Endocrine: Reports blood sugar level of 212 mg/dL. - Dermatological: 2 hyperkeratotic lesions noted to the plantar aspect of the right foot. All systems reviewed & are unremarkable except as noted in HPI and below Physical Exam Vital Signs: BMI result Body Mass Index 25.7 Extrem Other: Bilateral lower extremity focused physical exam: Dermatological: Presence of 2 hyperkeratotic lesions noted to the plantar aspect of the right foot in the area of the 4th and 5th metatarsal heads. Upon debridement a preulcerative site was noted with no drainage or purulence. No erythema or edema noted. Nails: Appeared healthy and were of a normal length. Vascular: DP/PT pulses palpable. Capillary refill time less than 3 seconds. Temperature gradient is warm to warm. Pedal hair present. No varicosities noted. Neurological: Sensation intact in feet, able to feel light touch and monofilament testing Musculoskeletal: No pain on palpation to the hyperkeratotic lesions noted to the plantar aspect of the right foot. Range of motion of the forefoot hindfoot and ankle within normal limits. MMT 5/5 bilaterally. Normal arch noted to the bilateral feet. Nonantalgic gait unassisted. Ankle/foot/toe images: 2 1. Office Procedures AMB Debridement/Avulsion Podia Details: Debrided 2 hyperkeratotic lesions noted to the plantar aspect of the right foot using a 15. Blade with no incidents. 91461-Tcgnhpsneno of Callus (2-4) Procedure code (CPT) selection complete Diabetic Foot Exam G9226 - Diabetic Foot Exam Results Reviewed Results Reviewed: Laboratory Tests 12/14/24 07:39 Hemoglobin A1c % 6.4 H Patient's blood glucose today was 212 mg/dL. Assessment & Plan Assessment & Plan (1) DM type 2 (diabetes mellitus, type 2): Comment: IDDM x 6 years, Code(s): E11.9 - Type 2 diabetes mellitus without complications Category: Medical (2) Insulin dependent type 2 diabetes mellitus: Code(s): E11.9 - Type 2 diabetes mellitus without complications; Z79.4 - longterm (current) use of insulin Category: Medical (3) Other specified epidermal thickening: Code(s): L85.8 - Other specified epidermal thickening Category: Medical (4) Acquired keratosis [keratoderma] palmaris et plantaris: Code(s): L85.1 - Acquired keratosis [keratoderma] palmaris et plantaris Category: Medical Plan Patient was informed and verbally consented to the use of an ambient scribe for clinic note documentation during this visit. Provided patient with diabetic foot education. I discussed with the patient the importance of monitoring blood glucose levels and maintaining proper foot care due to diabetes. We reviewed the need for annual foot examinations to prevent complications such as neuropathy or ulcerations. Upon debridement of the hyperkeratotic lesions a preulcerative area was noted, advised patient to apply Neosporin and a Band-Aid to the area for the next 2 weeks to prevent worsening of the site. We also discussed the use of supportive footwear and insoles to aid in foot health. The patient is aware of the importance of monitoring sensation in his feet due to the risk of neuropathy associated with diabetes. 1. Diabetes Mellitus - Continue insulin therapy as prescribed. - Monitor blood glucose levels regularly. - Annual foot examination to monitor for neuropathy and other complications. 2. IPK - debrided hyperkeratotic lesions to prevent underlying wound formation. - Apply Neosporin and a Band-Aid to deeper preulcerative site daily for a couple of weeks. Patient is to return to the office in 1 year. Advised patient to return to the office sooner or to go to the ED if symptoms worsen. We will consider new prescription for diabetic shoes and insoles at next appointment. Orders: Orders 2 AMB Debridement/Avulsion Podiatry Today E11.9 - Type 2 diabetes mellitus without complications, L85.1 - Acquired keratosis [keratoderma] palmaris et plantaris, L85.8 - Other specified epidermal thickening, Z79.4 - longterm (current) use of insulin Coding Level of Care Code New Pt Level 4 (57471) Diagnoses DM type 2 (diabetes mellitus, type 2) E11.9 Insulin dependent type 2 diabetes mellitus E11.9; Z79.4 Other specified epidermal thickening L85.8 Acquired keratosis [keratoderma] palmaris et plantaris L85.1 CPT Codes Skin Debridement - CPT: 65756-Lekfrgbphqj of Callus (2-4) ([id number]) Diabetic Foot Exam - CPT: G9226 - Diabetic Foot Exam ([id number]) Time Spent (min) 49
--- OUTSIDE RECORDS SUMMARY | 2024-12-26 07:58 | XMS_ITS | Patient Health Record ---
Author Organization [facility] Address [address] [place] [address] Care Team Providers Care Tank Washer Name Role Phone Anil (RETIRED) Oscar STATON [...] Problem Status W/U Status Risk Notes Problem 212303466 Colon cancer screening (Z12.11) Active confirmed Problem 958246113 Encounter for other preprocedural examination (Z01.818) Active confirmed Problem 560082051 Long-term use of aspirin therapy (Z79.82) Active confirmed Plan Of Treatment Future Test Test Name Order Date COLONOSCOPY 09/05/2019 Insurance Providers Payer Name Payer Address Payer Phone Subscriber Number Group Number Insured Name Patient Relationship to Insured Coverage Start Date Coverage End Date [facility] [address] [place] [phone] [id number] FREDERIC CLIFFORD Self - patient is the insured Medical (General) History Medical History History ICD Code type II diabetes 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
--- OUTSIDE RECORDS SUMMARY | 2024-12-26 07:58 | XMS_ITS | Continuity of Care Document ---
Author Organization [facility] [address] [place] [address] Phone [phone] Care Team Providers Care Rn Procedures Name Role Phone Oscar Ma M.D. Care Team Information Receiv er [phone] Problems Active Problems Provider Date Type 2 [...] SIG Qnty Indications Order ing Provider Date Gckmfzdsst520gk Capsules 1 by mouth hs 90caps Eric Anderson M.D. 05/31/2022 Knknipx667Ynfz/ML Solution before meals 30ml Eric Anderson M.D. 04/21/2022 Humalog Bjlkzra128Ojiv/ML Solution Pen-Inject inject 6-12 units subcutaneously before meals 15ml E11.9 Eric Anderson M.D. 04/21/[address] Take 1 Tablet By Mouth Once A Day Oscar Ma M.D. Lantus Gwdfnfgo698Qtyh/ML Solution Pen-Inject Inject 20 Units Subcutaneously Once [...]
[2024-12-26 07:59] VITALS: BMI 25.7
== END 2024-12-26 08:18 | disposition home or self-care (01) ==
LOC: HO.HPODS 07:55
PROVIDERS: PCP Internal Medicine; Visit Provider Student in an Organized Health Care Education/Training Program
DX: E11.9 Type 2 diabetes mellitus without complications (principal); Z79.4 Long term (current) use of insulin; L85.8 Other specified epidermal thickening; L85.1 Acquired keratosis [keratoderma] palmaris et plantaris
CPT/HCPCS: 11056; 99203; G9226

== ENCOUNTER → 2024-12-26 07:54 | Outpatient (BNVA) | payer OTHER, SELFPAY | PROVIDERS: PCP Internal Medicine; Visit Provider Student in an Organized Health Care Education/Training Program | DX: L85.1 Acquired keratosis [keratoderma] palmaris et plantaris (principal); L85.8 Other specified epidermal thickening; E11.9 Type 2 diabetes mellitus without complications; Z79.4 Long term (current) use of insulin | CPT/HCPCS: 11056 ==

== ENCOUNTER 2025-02-20 06:55 | Outpatient (REF) | payer OTHER, SELFPAY ==
--- OUTSIDE RECORDS SUMMARY | 2025-02-20 06:59 | XMS_ITS | Patient Health Record ---
Author Organization [facility] Address [address] [place] [phone] Care Team Providers Care Ui Architect Name Role Phone Anil (RETIRED) Oscar STATON Primary Care Provide r Unavailable Morgan Adhikari Jr Unavailable Reason For Referral No Information Medications Medication SIG (Take, Route, Frequency, Duration) Notes Start Date End Date Status Aspirin 81 81 MG 1 tablet Orally Once a day; Duration: 30 day(s) Active glipiZIDE 10 MG TAKE ONE TABLET BY M OUTH TWICE A DAY Oral; Duration: 30 Active MiraLax (colon prep) 8.3 ounce ((238) grams mixed with Gatorade or Crystal Light orally begin at 5:00 p.m. the day before the procedure; Duration: 1 day 09/05/2019 Active metFORMIN HCl 1000 MG TAKE ONE TABLET BY MOUTH TWICE A DAY Oral; Duration: 30 Active Immunizations Vaccine Route Administration Date [...] Problem Status W/U Status Risk Notes Problem Colon cancer screening (535620694) Colon cancer screening (Z12.11) Active confirmed Problem Pre-procedure evaluation check (996069026) Encounter for other preprocedural examination (Z01.818) Active confirmed Problem Long-term current use of antiplatelet drug ([id number] ) Long-term use of aspirin therapy (Z79.82) Active confirmed Plan Of Treatment Future Test Test Name Order Date COLONOSCOPY 09/05/2019 Insurance Providers Payer Name Payer Address Payer Phone Subscriber Number Group Number Insured Name Patient Relationship to Insured Coverage Start Date Coverage End Date [facility] [address] [place] [phone] [id number] FREDERIC CLIFFORD Self - patient is the insured Medical (General) History Medical History History ICD Code type II diabetes 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
[2025-02-20 10:31] LABS: MANUAL DIFF FLAG NO
[2025-02-20 10:46] LABS: Hematocrit 43.9 % (42.0-52.0); Hemoglobin 15.4 g/dl (14.0-18.0); Imm Gran Abs Auto 0.01 X10*3/uL (0.00-0.03); Imm Gran Pct Auto 0.2 % (0.0-0.4); Lymphocytes Absolute Auto 1.3 X10*3/uL (1.2-4.9); Mean Corpuscular HGB Conc 35.1 g/dl (31.0-36.0); Mean Corpuscular Hemoglobin 33.1 pg (27.0-33.0); Mean Corpuscular Volume 94.4 fL (80.0-98.0); NRBC Abs Auto 0.000 X10*3/uL (0.0-0.012); NRBC Pct Auto 0.0 /100WBC (0.0-0.2); Platelet Count 151 X10*3/uL (160-400); Red Blood Count 4.65 X10*6/uL (4.60-5.80); White Blood Count 4.6 X10*3/uL (4.8-10.8)
[2025-02-20 11:25] LABS: Microalbum/Creatinine Ratio Ur 15.0 ug/mg cr (<30)
[2025-02-20 11:59] LABS: Alanine Aminotransferase 16 U/L (0-40); Albumin Level 4.1 g/dL (3.5-5.0); Alkaline Phosphatase 48 U/L (39-117); Anion Gap 11 (12-20); Aspartate Amino Transferase 26 U/L (5-37); Blood Urea Nitrogen 18 mg/dL (9-16); Calcium 8.9 mg/dL (8.4-10.2); Carbon Dioxide 26 mmol/L (22-29); Chloride 103 mmol/L (96-108); Cholesterol 152 mg/dL (<200); Estimated Glomerular Filt Rate > 60; HDL Cholesterol 61 mg/dL (>40); Potassium 4.5 mmol/L (3.3-5.1); Sodium 135 mmol/L (135-145); Total Protein 6.8 g/dL (6.5-8.0); Triglycerides 107 mg/dL (<150)
== END 2025-02-20 06:56 | disposition home or self-care (01) ==
LOC: HO.HMGCLDS 06:55
PROVIDERS: PCP Internal Medicine; Visit Provider Internal Medicine
DX: E11.9 Type 2 diabetes mellitus without complications (principal)
CPT/HCPCS: 36415; 80053; 80061; 82043; 82570; 83036; 85025

== ENCOUNTER 2025-02-21 09:14 | Outpatient (AMB) | payer OTHER, SELFPAY ==
[2025-02-21 09:16] VITALS: BP 128/80; PULSE 78; RESP 16; TEMP 36.9; O2SAT 98; BMI 25.7
--- NOTE | 2025-02-21 09:16 | MHC.PC.OV ---
Vital Signs 02/21/25 09:16 Height 6 ft 2 in Weight 200 lb BMI 25.7 BP 128/80 Blood Pressure Location Lt brachial Position Sitting Respiration 16 Pulse 78 Pulse Source Pulse Oximeter Temp 98.4 F Temp Source Oral Pulse Oximetry (%) 98 Oxygen Delivery Method Room Air Intake Visit Reasons: 2 months f/up Intake Note: Pt is here today for 2 months follow up visit. Allergies metformin Adverse Reaction (Intermediate, Verified 02/21/25 09:16) Stomach Upset Medication List - Last Reconciled 02/21/25 by Fernanda Villarreal MD blood sugar diagnostic (FreeStyle Lite Strips) As directed blood-glucose meter (FreeStyle Lite Meter kit) As directed blood-glucose sensor (FreeStyle Magdalena 3 Plus Sensor device) Test blood sugar 4 times a day, change sensor every 15 days Farxiga (dapagliflozin propanediol) 10 mg PO DAILY NS insulin glargine (Lantus Solostar U-100 Insulin) 20 units (0.2 mL) subcut DAILY insulin lispro (Humalog KwikPen (U-100) Insulin) 6 - 12 units (0.06 - 0.12 mL) subcut TID MDD 36 units lancets (FreeStyle Lancets) As directed Tobacco use date assessed: 02/21/25 Dental Screening Dental Screen Date: 05/10/24 HPI 2 months f/up HPI Details Patient presents for the follow-up of insulin-dependent diabetes. He reports blood glucose readings between 100 to 140 fasting occasionally rising to over 200 after meals. 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 1. Little interest or pleasure in doing things: not at all 2. Feeling down, depressed, or hopeless: not at all 3. Trouble falling or staying asleep, or sleeping too much: not at all 4. Feeling tired or having little energy: not at all 5. Poor appetite or overeating: not at all 6. Feeling bad about yourself - or that you are a failure or have let yourself or your family down: not at all 7. Trouble concentrating on things, such as reading the newspaper or watching television: not at all 8. Moving or speaking so slowly that other people could have noticed. Or the opposite - being so fidgety or restless that you have been moving around a lot more than usual: not at all 9. Thoughts that you would be better off or of hurting yourself in some way: not at all Total score: 0 Depression Screening Interpretation: Negative Depression Screening Done: Yes Source: Developed by Drs. Kong Paniagua, Leatha Haji, Osman Campbell and colleagues, with an educational dia from [employer]. Thrive Questionnaire Date Thrive assessed: 05/06/24 I am a: Patient What is your living situation today?: I have a steady place to live Within the past 12 months, did the food you bought not last and you didn't have the money to get more?: I choose not to answer this question Within the past 12 months, did you worry whether your food would run out before you got money to buy more?: Sometimes True Do you have trouble paying for medicines?: I choose not to answer this question Do you have trouble getting transportation to medical appointments?: No Do you have trouble paying your heating and electricity bill?: Yes Do you have trouble taking care of your child, family member or friend?: No Do you have trouble with day-to-day activities such as bathing, preparing meals, shopping, managing finances, etc.?: No Are you currently unemployed and looking for a job?: No Are you interested in more education?: Yes Please select the resources that you would like help with: Utilities Currently or been in a relationship where the following occur: No concerns reported THRIVE Score: 2 BRISEIDA-7 AMB Questionnaire BRISEIDA-7 Date BRISEIDA - 7 assessed: 05/10/24 Feeling nervous, anxious, or on edge: 0 = Not at all Not being able to stop or control worryin = Not at all Worrying too much about different things: 0 = Not at all Trouble relaxin = Not at all Being so restless that it is hard to sit still: 0 = Not at all Becoming easily annoyed or irritable: 0 = Not at all Feeling afraid as if something awful might happen: 0 = Not at all Total BRISEIDA-7 score (0-4 normal; 5-9 mild; 10-14 moderate; 15-21 severe): 0 Source: Developed by Drs. Kong Paniagua, Leatha Haji, Osman Campbell and colleagues, with an educational dia from [employer]. Review of Systems Const All systems reviewed & are unremarkable except as noted in HPI and below ENT Reports no additional complaints Card Reports no additional complaints Resp Reports no additional complaints GI Reports no additional complaints Reports no additional complaints Physical exam (Primary Care) Vital Signs: Last Vital Signs Temp 98.4 F 02/21/25 09:16 Pulse 78 02/21/25 09:16 Resp 16 02/21/25 09:16 BP 128/80 02/21/25 09:16 Pulse Ox 98 02/21/25 09:16 Oxygen Delivery Method Room Air 02/21/25 09:16 BMI result Body Mass Index 25.7 Tobacco/Smoking Status: Tobacco use Status Tobacco use date assessed 02/21/25 02/21/25 09:19 Patient Tobacco Use Status Former Tobacco user 02/21/25 09:17 e-Cigarette/Vaping Use Never Used 02/21/25 09:17 PHQ-9: PHQ-9 Score PHQ-9: Total score 0 02/21/25 09:23 Depression Screening Interpretation: Negative Thrive Assessment: Date of Thrive Assessment Date Thrive assessed 05/06/24 02/21/25 09:17 Currently or been in a relationship where the following occur: No concerns reported Const General: no acute distress HENMT Head: Yes normal to inspection Neck Neck: Yes supple Resp Effort & Inspection: normal respiratory effort Auscultation: clear to auscultation bilaterally Cardio Rhythm: regular rhythm Heart sounds: S1 normal heart sound present and S2 normal heart sound present GI Inspection: Yes normal to inspection Palpation (GI): Soft to palpation Percussion: Yes normal to percussion Auscultation: normal bowel sounds Coding Level of Care Code Est Pt Level 4 (46793) Diagnoses DM type 2 (diabetes mellitus, type 2) E11.9 Assessment & Plan Assessment & Plan (1) DM type 2 (diabetes mellitus, type 2): Comment: IDDM x 6 years, Code(s): E11.9 - Type 2 diabetes mellitus without complications Category: Medical Plan: A1c is 6.7, ADA diet regular physical activity discussed with the patient. He was advised to increase his before larger or more carbohydrate loaded to avoid postpartal hyperglycemia. Follow-up in 3 months with a fasting labs. Patient will schedule diabetic eye exam Orders: Orders Hemoglobin A1c Today E11.9 - Type 2 diabetes mellitus without complications Microalbumin, Random (w Creat) Today E11.9 - Type 2 diabetes mellitus without complications Comprehensive [place]. Panel Fast Today E11.9 - Type 2 diabetes mellitus without complications
== END 2025-02-21 09:42 | disposition home or self-care (01) ==
LOC: HO.HMCC 09:14
PROVIDERS: PCP Internal Medicine; Visit Provider Internal Medicine
DX: E11.9 Type 2 diabetes mellitus without complications (principal)